=== PATIENT | male | born 1990 | race African-American/Black ===

== ENCOUNTER 2017-10-20 17:35 | Emergency (ER) | payer OTHER ==
[~2017-10-20] VITALS: Ht 182.9 cm; Wt 74.8 kg
[2017-10-20] MEDS ORDERED: FLEXERIL10 MG PO (18:19)
[2017-10-20 19:02] VITALS: BP 129/94
== END 2017-10-20 19:03 | disposition home or self-care (01) ==
LOC: EME 17:35
DX: S70.02XA Contusion of left hip, initial encounter (principal); S86.912A Strain of unspecified muscle(s) and tendon(s) at lower leg level, left leg, initial encounter; S09.90XA Unspecified injury of head, initial encounter; V43.52XA Car driver injured in collision with other type car in traffic accident, initial encounter; Y92.410 Unspecified street and highway as the place of occurrence of the external cause
CPT/HCPCS: 99281; 99283